=== PATIENT | male | born 1975 | race Caucasian/White ===

== ENCOUNTER 2022-01-20 08:33 | Emergency (ER) | payer OTHER ==
[~2022-01-20 08:33] MED LIST: ASPIRIN CHEWABL81 MG PO; CLARITIN-D 241 EACH PO; DOSS PO; FLONASE ALLER15.8 ML; IBUPROFEN600 MG PO; PERCOCET 7.5-31 EACH PO; TRAMADOL HCL50 MG PO; ZOFRAN4 MG PO
[2022-01-20] MEDS ORDERED: ZANAFLEX4 MG PO (10:39)
== END 2022-01-20 11:00 | disposition home or self-care (01) ==
LOC: ER1 08:33
DX: S46.911A Strain of unspecified muscle, fascia and tendon at shoulder and upper arm level, right arm, initial encounter (principal); S13.4XXA Sprain of ligaments of cervical spine, initial encounter; R40.2410 Glasgow coma scale score 13-15, unspecified time; V89.2XXA Person injured in unspecified motor-vehicle accident, traffic, initial encounter; W22.10XA Striking against or struck by unspecified automobile airbag, initial encounter; Y92.410 Unspecified street and highway as the place of occurrence of the external cause
CPT/HCPCS: 70450; 72125; 73030; 99284